=== PATIENT | male | born 1935 | race Caucasian/White ===

== ENCOUNTER 2016-12-14 08:00 | Outpatient (CLI) | payer MEDICARE, OTHER | END 2016-12-14 08:01 | disposition home or self-care (01) | DX: I50.22 Chronic systolic (congestive) heart failure (principal) ==

== ENCOUNTER 2017-03-18 08:00 | Outpatient (CLI) | payer MEDICARE, OTHER ==
[2017-03-18 19:15] LABS: CALCIUM 9.3 mg/dL (8.5-10.3); CREATININE 1.8 mg/dL (0.6-1.2); POTASSIUM 4.4 mmol/L (3.5-5.0)
== END 2017-03-18 08:01 | disposition home or self-care (01) ==
LOC: LAB.N 08:00
PROVIDERS: ATTEND Internal Medicine Cardiovascular Disease
DX: I50.22 Chronic systolic (congestive) heart failure (principal)
CPT/HCPCS: 36415; 80048; 83880

== ENCOUNTER 2017-06-14 14:08 | Outpatient (CLI) | payer MEDICARE, OTHER ==
[2017-06-14 20:04] LABS: CALCIUM 9.1 mg/dL (8.5-10.3); POTASSIUM 4.3 mmol/L (3.5-5.0)
== END 2017-06-14 14:09 | disposition home or self-care (01) ==
LOC: LAB.N 14:08
PROVIDERS: ATTEND Internal Medicine Cardiovascular Disease
DX: I50.22 Chronic systolic (congestive) heart failure (principal)
CPT/HCPCS: 36415; 80048; 83880

== ENCOUNTER 2017-08-16 08:00 | Outpatient (CLI) | payer MEDICARE, OTHER ==
[2017-08-16 19:19] LABS: BASOPHILS # (AUTO) 0.1 10^3/uL (0.0-0.1); BASOPHILS % (AUTO) 0.7 %; EOSINOPHILS # (AUTO) 0.5 10^3/uL (0.0-0.7); EOSINOPHILS % (AUTO) 6.1 %; HCT - HEMATOCRIT 37.8 % (42.0-52.0); HGB - HEMOGLOBIN 12.2 g/dL (14.0-18.0); LYMPHOCYTES # (AUTO) 1.3 10^3/uL (1.5-3.5); LYMPHOCYTES % (AUTO) 15.7 %; MEAN CORPUSCULAR HEMOGLOBIN 29.5 pg (27.0-31.0); MEAN CORPUSCULAR HGB CONC 32.3 g/dL (32.0-36.0); MEAN CORPUSCULAR VOLUME 91.4 fL (80.0-94.0); MEAN PLATELET VOLUME 7.9 fL (7.4-11.4); MONOCYTES # (AUTO) 0.9 10^3/uL (0.0-1.0); MONOCYTES % (AUTO) 10.3 %; NEUTROPHILS # (AUTO) 5.6 10^3/uL (1.5-6.6); NEUTROPHILS % (AUTO) 67.2 %; NUCLEATED RED BLOOD CELLS AUTO 0.1 /100WBC; RED BLOOD COUNT 4.14 10^6/uL (4.70-6.10); UNCORRECTED WHITE BLOOD COUNT 8.4 x10^3/uL; WHITE BLOOD COUNT 8.4 x10^3/uL (4.8-10.8)
[2017-08-16 19:24] LABS: ALBUMIN/GLOBULIN RATIO 0.9 (1.0-2.2); BILIRUBIN,TOTAL 0.5 mg/dL (0.2-1.0); CALCIUM 9.3 mg/dL (8.5-10.3); POTASSIUM 4.5 mmol/L (3.5-5.0); TOTAL PROTEIN 7.5 g/dL (6.7-8.2); URIC ACID 7.2 mg/dL (2.6-7.2)
== END 2017-08-16 08:01 | disposition home or self-care (01) ==
LOC: LAB.N 08:00
PROVIDERS: ATTEND Internal Medicine
DX: I50.9 Heart failure, unspecified (principal); M10.9 Gout, unspecified
CPT/HCPCS: 36415; 80053; 83880; 84550; 85025

== ENCOUNTER 2017-11-03 08:00 | Outpatient (CLI) | payer MEDICARE, OTHER ==
[2017-11-03 19:12] LABS: CALCIUM 9.1 mg/dL (8.5-10.3); CREATININE 1.8 mg/dL (0.6-1.2)
== END 2017-11-03 08:01 | disposition home or self-care (01) ==
LOC: LAB.N 08:00
PROVIDERS: ATTEND Internal Medicine
DX: I25.5 Ischemic cardiomyopathy (principal); R06.02 Shortness of breath
CPT/HCPCS: 36415; 80048; 83880

== ENCOUNTER 2018-01-03 08:00 | Outpatient (CLI) | payer MEDICARE, OTHER ==
[2018-01-03 19:24] LABS: CALCIUM 8.7 mg/dL (8.5-10.3)
== END 2018-01-03 08:01 | disposition home or self-care (01) ==
LOC: LAB.N 08:00
PROVIDERS: ATTEND Internal Medicine Cardiovascular Disease
DX: I50.22 Chronic systolic (congestive) heart failure (principal)
CPT/HCPCS: 36415; 80048; 83880

== ENCOUNTER 2018-05-03 08:00 | Outpatient (CLI) | payer MEDICARE, OTHER ==
[2018-05-03 12:14] LABS: CALCIUM 8.6 mg/dL (8.5-10.3); CREATININE 1.7 mg/dL (0.6-1.2)
== END 2018-05-03 08:01 | disposition home or self-care (01) ==
LOC: LAB.N 08:00
PROVIDERS: ATTEND Internal Medicine Cardiovascular Disease
DX: I50.22 Chronic systolic (congestive) heart failure (principal)
CPT/HCPCS: 36415; 80048; 83880

== ENCOUNTER 2018-08-17 08:00 | Outpatient (CLI) | payer MEDICARE, OTHER ==
[2018-08-17 19:08] LABS: CALCIUM 9.4 mg/dL (8.5-10.3); CREATININE 1.8 mg/dL (0.6-1.2)
== END 2018-08-17 08:01 ==
LOC: LAB.N 08:00
PROVIDERS: ATTEND Internal Medicine Cardiovascular Disease
DX: I50.22 Chronic systolic (congestive) heart failure (principal)
CPT/HCPCS: 36415; 80048; 83880

== ENCOUNTER 2018-12-13 08:00 | Outpatient (CLI) | payer MEDICARE, OTHER ==
[2018-12-13 19:30] LABS: CREATININE 1.6 mg/dL (0.6-1.2)
== END 2018-12-13 23:59 | disposition home or self-care (01) ==
LOC: LAB.N 08:00
PROVIDERS: ATTEND Internal Medicine Cardiovascular Disease
DX: I50.22 Chronic systolic (congestive) heart failure (principal)
CPT/HCPCS: 36415; 80048; 83880

== ENCOUNTER 2019-01-13 14:18 | Outpatient (CLI) | payer SELFPAY | END 2019-01-13 14:19 | disposition EMS.NT | LOC: EMS 14:18 | PROVIDERS: ATTEND Surgery | DX: R10.9 Unspecified abdominal pain (principal); M54.2 Cervicalgia; W06.XXXA Fall from bed, initial encounter; Y92.003 Bedroom of unspecified non-institutional (private) residence as the place of occurrence of the external cause ==

== ENCOUNTER 2019-03-08 08:00 | Outpatient (CLI) | payer MEDICARE, OTHER ==
[2019-03-08 19:07] LABS: ALBUMIN 3.4 g/dL (3.2-5.5); ALBUMIN/GLOBULIN RATIO 0.9 (1.0-2.2); BILIRUBIN,TOTAL 0.6 mg/dL (0.2-1.0); CALCIUM 9.3 mg/dL (8.5-10.3); CREATININE 1.8 mg/dL (0.6-1.2); TOTAL PROTEIN 7.2 g/dL (6.7-8.2)
[2019-03-08 19:12] LABS: CREATININE,URINE 42.3 mg/dL; MICROALBUM/CREATININE RATIO,UR 170.2 ug/mg (<30.0); MICROALBUMIN,URINE 7.2 mg/dL (0-300.0)
[2019-03-08 19:14] LABS: HB2 TOTAL 12.1 g/dL; HEMOGLOBIN A1C 0.59 g/dL; HEMOGLOBIN A1C % 6.6 % (4.6-6.2)
== END 2019-03-08 23:59 | disposition home or self-care (01) ==
LOC: LAB.N 08:00
PROVIDERS: ATTEND Internal Medicine
DX: I50.9 Heart failure, unspecified (principal); E11.9 Type 2 diabetes mellitus without complications
CPT/HCPCS: 36415; 80053; 82043; 82570; 83036

== ENCOUNTER 2019-04-12 16:01 | Outpatient (CLI) | payer MEDICARE, OTHER ==
--- NOTE | 2019-04-12 16:59 | CONSULTATION NOTE ---
Palliative Care Consultation - Referral Referring Provider: Dr Carrillo Time of Visit: [place] 04/12/2019. 10:35 - 12:25 Referral Reason: Declining status / Pal Care - Information Sources Records reviewed: Previous records reviewed History/Review of Systems obtained from: Patient, Family Exam limitations: No limitations - History of Present Illness Brief History of Present Illness: Thank you, Dr. Carrillo, for asking the palliative care consult service to be involved in the care of your patient. I am asked to provide support regarding decline in functional status, symptom management, and clarification of goals. 83-year-old male, [place] of several tours, had significant exposure to agent orange[place] 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 Medical History: CHF; CAD; aortic stenosis with bioprosthetic valve replacement; h/o CABG; ischemic cardiomyopathy; HLD; HTN; atrial fibrillation; pulmonary HTN; COPD on O2; HAMILTON; DM2; CKD3; h/o TIA/CVA; GERD; gout. Patient's comorbidities are advanced. He has declined Hospice during past discussion with PCP. His Jessie, a retired nurse, were agreeable to meeting with the palliative care service. Patient's CHF and COPD are advanced, he is on continual oxygen. Patient becomes quickly SOA with any exertion, including speaking. He is sedentary most of the time, sleeping throughout the day, or watching TV. He doesn't sleep well at night, waking up after 2-3 hours sleep. He sleeps throughout the day, takes a 3-hr nap in the afternoons. He sees his drier and pulverizer tender three times per year. The next visit is in May. The most recent echo showed a 35% EF according to Jessie, patient's spouse. Patient uses Tylenol and heating pad to control pain in R shoulder. He fractured the R humerus about 1.5 years ago. 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), Chronic hearing loss Psych: reports: Depression, Anxiety Musculoskeletal: reports: None Derm: reports: None MRSA Hx?: Yes - Past Surgical History General: reports: Cholecystectomy (2-3 years ago), Colonoscopy Ortho: reports: ACL reconstruction, Other (R hip post fracture repair; pinned, 3 yrs ago) /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 Quite 43 years ago. Rarely drinks beer, never more than one.) Social History - Living Situation Living arrangement: At home Living Situation: With spouse/s.o. Support System: He and spouse Jessie, a retired nurse, have been 55 years. This is his second marriage. He has 6 children (4 living) that Jessie and he have raised. [place] on [address] [place]. He is originally from [place], [place]. 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 He had a serious, skin-contact exposure to agent orange while in [place], and receives an additional pension as a result. He spent 20 years in the [employer], 21 years with [employer]. Family History - Family History Family History Comment/Other: Father age 68, CVA. Mother age 72, also had CVA, lived 3 more years He has 6 siblings, two have with cancer. He has 6 children, two have with cardiac disease post-addiction. Medications/Allergies - Medications Home Medications: Ambulatory Orders Medication Instructions Recorded Confirmed Allopurinol 150 mg ORAL DAILY 11/18/14 04/12/19 Apixaban [Eliquis] 2.5 mg ORAL BID 11/18/14 04/12/19 Azithromycin 250 mg ORAL DAILY 11/18/14 04/12/19 Carvedilol 12.5 mg ORAL BID 11/18/14 04/12/19 FLUoxetine [PROzac] 20 mg ORAL DAILY 11/18/14 04/12/19 Ferrous Sulfate 325 mg ORAL DAILY 11/18/14 04/12/19 Fexofenadine [Sabrina] 60 mg ORAL DAILY 11/18/14 04/12/19 Levalbuterol HCl 0.31 mg .ROUTE Q4H PRN 11/18/14 04/12/19 Losartan [Cozaar] 25 mg ORAL DAILY 11/18/14 04/12/19 Potassium Chloride 20 meq ORAL DAILY 11/18/14 04/12/19 Spironolactone 25 mg ORAL DAILY 11/18/14 04/12/19 Tiotropium [Spiriva] 18 mcg INH DAILY 11/18/14 04/12/19 Torsemide 10 mg ORAL BID 11/18/14 04/12/19 Acetaminophen 500 mg PO Q8H PRN MDD max 3000 mg 04/12/19 04/12/19 / day Albuterol 3 ml PO Q8H PRN 04/12/19 04/12/19 Clobetasol Propionate/Emoll 1 ea TOP DAILY PRN 04/12/19 04/12/19 [Clobetasol Emollient 0.05% Crm] Clotrimazole Brittany 10 mg PO DAILY PRN 04/12/19 04/12/19 Cod Liver Oil 1 ea PO DAILY 04/12/19 04/12/19 Metoprolol Succinate 25 mg PO DAILY 04/12/19 04/12/19 Nystatin/Triamcin 1 ea TOP DAILY PRN 04/12/19 04/12/19 [Nystatin-Triamcinolone Ointm] Pantoprazole Sodium 40 mg PO DAILY 04/12/19 04/12/19 metOLazone [Metolazone] 2.5 mg PO DAILY PRN 04/12/19 04/12/19 - Allergies Allergies/Adverse Reactions: Allergies Allergy/AdvReac Type Severity Reaction Status Date / Time Sulfa (Sulfonamide Allergy Severe Rash Verified 05/20/16 19:35 Antibiotics) Dhlvred-Sqt-Cfk Reductase Allergy Intermediate Cramps Verified 05/20/16 19:35 Inhibitor codeine Allergy Severe Nausea Uncoded 05/20/16 19:35 lisinopril Allergy Severe Unknown Uncoded 05/20/16 19:35 statins Allergy Severe Unknown Uncoded 05/20/16 19:35 sulfadiazine Allergy Severe Rash Uncoded 05/20/16 19:35 Review of Systems - Constitutional Constitutional: reports: Fatigue, Weight loss (196.2 lbs 03/20/19, BMI 32.77. 199.6 lbs 12/14/18.) - Eyes Eyes: reports: Vision loss (L eye, post-CVA) - Ears, Nose & Throat Ears, Nose & Throat: reports: Hearing loss, Hearing aids (doesn't use them), Dentures (upper and lower, since his 20s) - Cardiovascular Cardiovascular: reports: Palpitations, Edema, Lightheadedness, Exertional dyspnea, Decr. exercise tolerance - Respiratory Respiratory: reports: Wheezing, SOB at rest, SOB with exertion - Gastrointestinal Gastrointestinal: reports: Constipation, Diarrhea, Rectal bleeding (on Protonix), Poor appetite (moderate) - Genitourinary Genitourinary: reports: Frequency, Incontinence (leakage), Nocturia, Sexual dysfunction - Musculoskeletal Musculoskeletal: reports: Stiffness, Limited range of motion (R shoulder), Joint pain (bilateral knees; [id number]; not a surgical candidate), Assistive devices (walker), Transfer issues (stand by assist) - Integumentary Integumentary: reports: Dryness, Pigment changes (hemosiderin staining dorsal aspect of L hand), Other (psoriasis) - Neurological Neurological: reports: General weakness, Memory problems - Psychiatric Psychiatric: reports: Depression (Prozac since 2010), Other (nervousness) - Hematologic/Lymphatic Hematologic/Lymphatic: reports: Anemia (transfusion in 2010), Bruising (on Apixaban), Bleeding tendencies (slow to heal after cuts) Physical Exam - Vital Signs Temperature: 96.4 F Pulse Rate: 83 O2 Saturation: 99 (3L O2 NC) Blood Pressure: 93/52 (Pt reports PCP wants it low) - Physical Exam General Appearance: positive: No acute distress Eyes Bilateral: positive: Normal inspection. negative: EOMI (blind L eye) ENT: positive: No signs of dehydration Neck: positive: Trachea midline Cardiovascular: positive: Irregular, Systolic murmur (2/6) Respiratory: positive: Chest non-tender, No respiratory distress, Diminished in bases (R side very diminished). negative: Wheezes, Rales, Rhonchi Abdomen: positive: Non-tender, Soft, Abnml bowel sounds (hypoactive), Obese Skin: positive: Dryness, Bruising Extremities: positive: Pedal edema (2+, L foot greater) Neurologic/Psychiatric: positive: Oriented x3, Mood/affect nml Palliative Care - POLST Patient has POLST: Yes POLST Status: DNR, Selective Treatment Pain: Pain unchanged, Comment (shoulder and joints) Tiredness/Fatigue: Severe (7-10) Drowsiness/Sedation: Severe (7-10) Nausea: Mild (1-3) Depression: Moderate (4-6) Anxiety: Moderate (4-6) Dyspnea: Severe (7-10) Anorexia: Moderate (4-6) Sleep: Sleeps poorly (sleeps 2-3 hours then up, both day and night), Variable sleep pattern Constipation: Yes, Intermittent constipation, Comment (uses docusate and senna alternately) Performance Status: requires help getting dressed, can't lean over transfers with difficulty, stands by ambulatory with walker, unsteady gait 24-hour oxygen 2-3L SOA with any exertion incontinent/leakage uses toilet independently Palliative Performance Scale (PPS): 50% ALVA INDEX - All-cause 1-year mortality risk for community-dwelling adults age 65 and over: 36.5% Risk calculators cannot predict the future for any one individual. Risk calculators give an estimate of how many people with similar risk factors will live and , but they cannot identify who will live and who will . - Palliative Care Discussion: When asked what concerns him most of all, it is his , and that the burden of taking care of the house and property falls on her. He expresses regret about losing the ability to mow his gatica and work around the house. Jessei doesn't feel comfortable at hiring people to help with the house or land; they have had some disappointing experiences with people they have hired in the past. We did discuss the possibility of eventually needing to hire outside caregiver help as his disease process progresses. We discussed [facility] as a resource, and [place]. Patient previously had a POLST, we did discuss goals of care, and his high risk for respiratory of CHF or COPD crises. Patient does want DNR, and for treatment, would want transfer to hospital for reversible conditions, but not to [facility]. He expressed disappointment when he was hospitalized 5 days at [facility] several years ago. While at [facility] he felt ignored by the staff, and felt that it may have been due to his DNR status. He ended up being transferred to [place] where a cholecystectomy was performed. He is ambivalent about intubation; we discussed the benefits and burdens, and the very poor prognosis of ever getting off intubation, considering the extent of his cardiovascular and lung disease. Provided education that the treatment section of the POLST is a guideline, there is flexibility on [id number] basis. Jessie keeps a close watch on his condition, manages his medications, adjusting dosing of diuretics and potassium as needed when his edema worsens. She expresses regret and sadness that they saved up for years so [place] could travel [place], and have not been able to do so with his poor health. The patient expresses some dark humor about his condition. Results - Lab Results Lab results reviewed: Yes Lab and Imaging Results: 03/08/19: Na 141 K+ 4.7 Chl 103 CO2 28 BUN 79 H Cr 1.8 H GFR 36 L Gluc 143 H Albumin 3.4 Alb/Glob ratio 0.9 L Impression and Recommendations - Palliative Care Impression: 83-year-old male, [place] of several tours, had significant exposure to agent orange[place]. 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 Prognosis is poor. Patient and could benefit from Palliative Care support and oversight, with monitoring for transition to Hospice when appropriate. Recommendations/Counseling Done: CHF: Patient sees drier and pulverizer tender Dr Hickman in [place] 3 times per year. Last visit was August. They have a May visit scheduled, Jessie plans to ask for an echo. She reports most recent showed EF of 35%. SOA is at his baseline today on 3L O2. Pedal edema is 2+. Jessie administers metolazone tablets as needed and titrates torsemide according to level of edema, and administers 2 potassium tablets for each torsemide tablet. Also on carvedilol and losartan. Atrial fibrillation: Metoprolol for rate control, Apixaban for anticoagulation. COPD: Continual oxygen, 2-3L. His O2 sats were 99%, Jessie decreased it to 2L. He has a history of difficult to control oral candidiasis, so he is not using the Advair Diskus (fluticasone-salmeterol), or the Spiriva. Provided education that it's corticosteriods that can trigger candidiasis, not tiotropium. He has leavalbuterol for nebulizer. Takes daily azithromycin for bloody sputum. CKD III: Not on any NSAIDs. PCP orders monthly labs to monitor. Renal labs elevated, but stable. Shoulder/LUE pain: S/P humerus fracture 1.5 years ago. Not currently using opioids, but he had a [place] order in the past. Pain controlled currently with 3-4 tablets of 500mg Tylenol a day; maximum his spouse administers is 3000mg/24hr. Depression: Stable with fluoxetine 20mg daily. Advance care planning: Discussed goals of care in relation to filling out new POLST: DNR, and selective treatment, patient wants transfer to an [place]land hospital, if needed, for treatment of reversible conditions. He would want to be treated for pneumonia, is undecided about intubation. No tube feeding; antibiotics to prolong life. Patient may be close to meeting medical criteria for Hospice, but his goals of care are not appropriate for Hospice at this time. Palliative Care will provide extra support and monitoring for transition to Hospice when appropriate. Follow up in May. Time Spent: 115 minutes were spent with more than 50% of the time spent on counseling, education, and coordination of care.
== END 2019-04-12 16:02 | disposition home or self-care (01) ==
LOC: PC 16:01
PROVIDERS: ATTEND Nurse Practitioner
DX: Z51.5 Encounter for palliative care (principal); I13.0 Hypertensive heart and chronic kidney disease with heart failure and stage 1 through stage 4 chronic kidney disease, or unspecified chronic kidney disease; I50.9 Heart failure, unspecified; E11.22 Type 2 diabetes mellitus with diabetic chronic kidney disease; N18.3 Chronic kidney disease, stage 3 (moderate); I48.91 Unspecified atrial fibrillation; J44.9 Chronic obstructive pulmonary disease, unspecified; T48.6X6A Underdosing of antiasthmatics, initial encounter; T44.3X6A Underdosing of other parasympatholytics [anticholinergics and antimuscarinics] and spasmolytics, initial encounter; Z91.128 Patient's intentional underdosing of medication regimen for other reason; Y92.009 Unspecified place in unspecified non-institutional (private) residence as the place of occurrence of the external cause; I27.20 Pulmonary hypertension, unspecified; M25.511 Pain in right shoulder; F32.9 Major depressive disorder, single episode, unspecified; G47.33 Obstructive sleep apnea (adult) (pediatric); I69.398 Other sequelae of cerebral infarction; H54.40 Blindness, one eye, unspecified eye; H91.93 Unspecified hearing loss, bilateral; I25.5 Ischemic cardiomyopathy; I25.10 Atherosclerotic heart disease of native coronary artery without angina pectoris; Z95.2 Presence of prosthetic heart valve; Z77.098 Contact with and (suspected) exposure to other hazardous, chiefly nonmedicinal, chemicals; Z99.81 Dependence on supplemental oxygen; Z86.14 Personal history of Methicillin resistant Staphylococcus aureus infection; Z87.891 Personal history of nicotine dependence; Z79.01 Long term (current) use of anticoagulants; Z66 Do not resuscitate; Z79.899 Other long term (current) drug therapy; Z79.2 Long term (current) use of antibiotics; Z95.1 Presence of aortocoronary bypass graft
CPT/HCPCS: 99345

== ENCOUNTER 2019-05-21 08:00 | Outpatient (CLI) | payer MEDICARE, OTHER ==
[2019-05-21 19:28] LABS: CALCIUM 9.1 mg/dL (8.5-10.3); CREATININE 1.8 mg/dL (0.6-1.2)
== END 2019-05-21 23:59 | disposition home or self-care (01) ==
LOC: LAB.N 08:00
PROVIDERS: ATTEND Internal Medicine Cardiovascular Disease
DX: I50.22 Chronic systolic (congestive) heart failure (principal)
CPT/HCPCS: 36415; 80048; 83880; 85610

== ENCOUNTER 2019-06-23 23:08 | Outpatient (CLI) | payer MEDICARE, OTHER | END 2019-06-23 23:09 | disposition EMS.NT | LOC: EMS 23:08 | PROVIDERS: ATTEND Surgery | DX: M54.9 Dorsalgia, unspecified (principal); W01.198A Fall on same level from slipping, tripping and stumbling with subsequent striking against other object, initial encounter; Y92.009 Unspecified place in unspecified non-institutional (private) residence as the place of occurrence of the external cause ==

== ENCOUNTER 2019-07-05 11:05 | Outpatient (CLI) | payer MEDICARE, OTHER | END 2019-07-05 11:06 | disposition critical access hospital (66) | LOC: EMS 11:05 | PROVIDERS: ATTEND Surgery | DX: M25.551 Pain in right hip (principal); W01.0XXA Fall on same level from slipping, tripping and stumbling without subsequent striking against object, initial encounter; Y92.003 Bedroom of unspecified non-institutional (private) residence as the place of occurrence of the external cause ==

== ENCOUNTER 2019-07-05 11:42 | Emergency (ER) | payer MEDICARE, OTHER ==
[2019-07-05 12:06] LABS: BASOPHILS % (AUTO) 0.5 %; EOSINOPHILS # (AUTO) 0.3 10^3/uL (0.0-0.7); EOSINOPHILS % (AUTO) 3.1 %; HGB - HEMOGLOBIN 10.5 g/dL (14.0-18.0); LYMPHOCYTES # (AUTO) 1.3 10^3/uL (1.5-3.5); LYMPHOCYTES % (AUTO) 16.5 %; MEAN CORPUSCULAR HEMOGLOBIN 29.7 pg (27.0-31.0); MEAN CORPUSCULAR HGB CONC 30.1 g/dL (32.0-36.0); MEAN CORPUSCULAR VOLUME 98.6 fL (80.0-94.0); MONOCYTES # (AUTO) 0.8 10^3/uL (0.0-1.0); MONOCYTES % (AUTO) 9.7 %; NEUTROPHILS # (AUTO) 5.6 10^3/uL (1.5-6.6); NEUTROPHILS % (AUTO) 69.3 %; PLT - PLATELET COUNT 194 10^3/uL (130-450); RED BLOOD COUNT 3.54 10^6/uL (4.70-6.10); RED CELL DISTRIBUTION WIDTH 14.7 % (12.0-15.0); WHITE BLOOD COUNT 8.1 x10^3/uL (4.8-10.8)
[2019-07-05 12:07] LABS: BILIRUBIN,URINE NEGATIVE (NEGATIVE); GLUCOSE, URINE (UA) NEGATIVE (NEGATIVE); KETONES,URINE (UA) NEGATIVE (NEGATIVE); LEUKOCYTE ESTERASE, URINE NEGATIVE (NEGATIVE); NITRITE,URINE NEGATIVE (NEGATIVE); OCCULT BLOOD,URINE NEGATIVE (NEGATIVE); PH,URINE 5.5 PH (5.0-7.5); PROTEIN,URINE NEGATIVE (NEGATIVE); UROBILINOGEN,URINE 0.2 (NORMAL) E.U./dL (NORMAL)
[2019-07-05 12:15] LABS: CLARITY,URINE CLEAR (CLEAR)
--- NOTE | 2019-07-05 12:50 | XRAY Report ---
Reason: FELL ONTO RIGHT HIP Procedure Date: 07/05/2019 Accession Number: [id number] / [id number] Procedure: XR - Hip w/Pelvis 2-3V RT CPT Code: FULL RESULT: EXAM: RIGHT HIP RADIOGRAPHY EXAM DATE: 07/05/2019 12:33 PM. CLINICAL HISTORY: FELL ONTO RIGHT HIP. COMPARISON: HIP 2 VIEW RT 11/18/2014 8:51 PM. TECHNIQUE: 3 views. FINDINGS: Bones: Fixation hardware along the proximal aspect of the right femur with no evidence of hardware failure or loosening. Joints: Fixation hardware along the proximal aspect of the right femur Soft Tissues: Normal. No soft tissue swelling. IMPRESSION: Fixation hardware along the proximal right femur with no hardware failure or loosening. No acute fracture identified. RADIA
[2019-07-05 13:12] LABS: ALBUMIN 3.3 g/dL (3.2-5.5); ALBUMIN/GLOBULIN RATIO 0.8 (1.0-2.2); BILIRUBIN,TOTAL 0.7 mg/dL (0.2-1.0); CALCIUM 9.1 mg/dL (8.5-10.3); TOTAL PROTEIN 7.2 g/dL (6.7-8.2)
[2019-07-05] MEDS ORDERED: SODIUM CHLORIDE 0.9% 1,000 ML IV ONE (13:16)
--- NOTE | 2019-07-05 14:05 | CT Report ---
Reason: Fell, hitting head; on Eliquis. Procedure Date: 07/05/2019 Accession Number: [id number] / [id number] Procedure: CT - HEAD WO CPT Code: FULL RESULT: EXAM: CT HEAD EXAM DATE: 07/05/2019 12:48 PM. CLINICAL HISTORY: Fell, hitting head; on Eliquis. COMPARISON: HEAD W/O 11/18/2014 9:02 PM. TECHNIQUE: Multiaxial CT images were obtained from the foramen magnum to the vertex. Reformats: Sagittal and coronal. IV contrast: None. In accordance with CT protocol optimization, one or more of the following dose reduction techniques were utilized for this exam: automated exposure control, adjustment of mA and/or KV based on patient size, or use of iterative reconstructive technique. FINDINGS: Parenchyma: There is diffuse moderate periventricular white matter hypodensity. Negative for acute intracranial hemorrhage. There is no midline shift or mass-effect. Extraaxial Spaces: No subdural or epidural collections identified. Ventricles: Normal in size and position. Sinuses and Orbits: There is complete opacification of the left maxillary sinus. There is bilateral ethmoid sinus mucosal thickening. Mastoid sinuses are clear. Bones: No evidence of fracture or calvarial defect. Other: None. IMPRESSION: 1. Negative for acute intracranial hemorrhage and mass-effect. 2. Moderate diffuse white matter disease. Nonspecific but most commonly attributed to sequela of chronic microangiopathy. RADIA
--- NOTE | 2019-07-05 14:07 | ED Physician Documentation ---
PD HPI Fall - Stated complaint Stated Complaint: GLF - Chief complaint Chief Complaint: Trauma Ext - History obtained from History obtained from: Patient, Family, EMS - History of Present Illness Mechanism of injury: Slipped Fall distance: From bed Where injury occurred: Home Timing - onset: Today (Just prior to arrival.) Injury(ies) location: Head, Right Lower Extremity Associated symptoms: No: LOC Contributing factors: Anticoagulated - Additional information Additional information: The patient is an 83-year-old male with history of coronary artery disease and atrial fibrillation, on Eliquis, who presents via ambulance after he slipped while getting out of bed this morning reaching for his walker. He fell onto his right hip, and hit his head on an end table. He denies loss of consciousness. No one witnessed the fall, but his heard the thud and responded immediately. The patient has ambulated with the assistance of his walker since the incident occurred. He currently complains of pain in his right hip. He denies headache, neck pain, chest pain, nausea or vomiting. Review of Systems Constitutional: denies: Fever Eyes: reports: Other (Right eye blindness.) Ears: denies: Tinnitus/ringing Nose: denies: Congestion Throat: denies: Sore throat Cardiac: denies: Chest pain / pressure Respiratory: denies: Dyspnea, Cough GI: denies: Abdominal Pain, Nausea, Vomiting : denies: Dysuria, Incontinent Skin: reports: Other (Skin tear at the right elbow.) Musculoskeletal: reports: Extremity pain (right hip.). denies: Neck pain Neurologic: denies: Focal weakness, Numbness, Altered mental status, Headache, LOC PD PAST MEDICAL HISTORY - Past Medical History Cardiovascular: Congestive heart failure, Hypertension, High cholesterol, Coronary artery disease, Atrial fibrillation, Other Respiratory: COPD, Shortness of breath, Other Endocrine/Autoimmune: Type 2 diabetes GI: GERD : Nocturia, Frequency, Other HEENT: Chronic vision loss, Chronic hearing loss Psych: Depression, Anxiety Musculoskeletal: None Derm: None - Past Surgical History Past Surgical History: Yes General: Cholecystectomy, Colonoscopy Ortho: ACL reconstruction, Other /BRICK BAKER: Other (JOSE 1991) Cardiovascular: CABG, Valve replacement, AAA HEENT: Other Derm: Skin cancer surgery - Present Medications Home Medications: Ambulatory Orders Medication Instructions Recorded Confirmed Allopurinol 150 mg ORAL DAILY 11/18/14 04/12/19 Apixaban [Eliquis] 2.5 mg ORAL BID 11/18/14 04/12/19 Azithromycin 250 mg ORAL DAILY 11/18/14 04/12/19 Carvedilol 12.5 mg ORAL BID 11/18/14 04/12/19 FLUoxetine [PROzac] 20 mg ORAL DAILY 11/18/14 04/12/19 Ferrous Sulfate 325 mg ORAL DAILY 11/18/14 04/12/19 Fexofenadine [Sabrina] 60 mg ORAL DAILY 11/18/14 04/12/19 Levalbuterol HCl 0.31 mg .ROUTE Q4H PRN 11/18/14 04/12/19 Losartan [Cozaar] 25 mg ORAL DAILY 11/18/14 04/12/19 Potassium Chloride 20 meq ORAL DAILY 11/18/14 04/12/19 Spironolactone 25 mg ORAL DAILY 11/18/14 04/12/19 Tiotropium [Spiriva] 18 mcg INH DAILY 11/18/14 04/12/19 Torsemide 10 mg ORAL BID 11/18/14 04/12/19 Acetaminophen 500 mg PO Q8H PRN MDD max 3000 mg 04/12/19 04/12/19 / day Albuterol 3 ml PO Q8H PRN 04/12/19 04/12/19 Clobetasol Propionate/Emoll 1 ea TOP DAILY PRN 04/12/19 04/12/19 [Clobetasol Emollient 0.05% Crm] Clotrimazole Brittany 10 mg PO DAILY PRN 04/12/19 04/12/19 Cod Liver Oil 1 ea PO DAILY 04/12/19 04/12/19 Metoprolol Succinate 25 mg PO DAILY 04/12/19 04/12/19 Nystatin/Triamcin 1 ea TOP DAILY PRN 04/12/19 04/12/19 [Nystatin-Triamcinolone Ointm] Pantoprazole Sodium 40 mg PO DAILY 04/12/19 04/12/19 metOLazone [Metolazone] 2.5 mg PO DAILY PRN 04/12/19 04/12/19 - Allergies Allergies/Adverse Reactions: Allergies Allergy/AdvReac Type Severity Reaction Status Date / Time Sulfa (Sulfonamide Allergy Severe Rash Verified 07/05/19 11:47 Antibiotics) [id number] Reductase Allergy Intermediate Cramps Verified 07/05/19 11:47 Inhibitor codeine Allergy Severe Nausea Uncoded 07/05/19 11:47 lisinopril Allergy Severe Unknown Uncoded 07/05/19 11:47 statins Allergy Severe Unknown Uncoded 07/05/19 11:47 sulfadiazine Allergy Severe Rash Uncoded 07/05/19 11:47 - Social History Does the pt smoke?: No Smoking Status: Never smoker Does the pt drink ETOH?: Yes Does the pt have substance abuse?: No - Immunizations Immunizations are current?: Yes - POLST Patient has POLST: Yes PD ED PE NORMAL - Vitals Vital signs reviewed: Yes (normal) - General General: Alert and oriented X 3, Well developed/nourished - HEENT HEENT: EOMI, Other (There is a small scalp hematoma at the right occipital region.) - Neck Neck: No bony TTP, No JVD - Cardiac Cardiac: RRR - Respiratory Respiratory: Clear bilaterally - Abdomen Abdomen: Soft, Non tender - Back Back: No spinal TTP - Derm Derm: No rash - Extremities Extremities: No calf tenderness / cord, Other (There is a superficial skin tear at the extensor aspect of the right elbow. There is no significant tenderness to palpation of the right hip, including no tenderness with internal or external rotation of the hip. Distal neurovascular is intact.) - Neuro Neuro: Alert and oriented X 3, No motor deficit, Normal speech Eye Opening: Spontaneous Motor: Obeys Commands Verbal: Oriented GCS Score: 15 Results - Vitals Vitals: Oxygen O2 Source [] Nasal cannula O2 Source [] Nasal cannula O2 Source Room air - Labs Labs: Laboratory Tests 07/05/19 07/05/19 07/05/19 11:55 12:00 12:00 WBC 8.1 RBC 3.54 L Hgb 10.5 L Hct 34.9 L MCV 98.6 H MCH 29.7 MCHC 30.1 L RDW 14.7 Plt Count 194 MPV 10.0 Neut # (Auto) 5.6 Lymph # (Auto) 1.3 L [place] # (Auto) 0.8 Eos # (Auto) 0.3 Baso # (Auto) 0.0 Absolute Nucleated RBC 0.00 Nucleated RBC % 0.0 Sodium 138 Potassium 4.3 Chloride 97 L Carbon Dioxide 30 Anion Gap 11.0 BUN 92 H* Creatinine 2.0 H Estimated GFR (MDRD) 32 L Glucose 118 H Calcium 9.1 Total Bilirubin 0.7 AST 19 ALT 17 Alkaline Phosphatase 81 Total Protein 7.2 Albumin 3.3 Globulin 3.9 Albumin/Globulin Ratio 0.8 L Lipase 72 H Urine Color YELLOW Urine Clarity CLEAR Urine pH 5.5 Ur Specific [place] 1.010 Urine Protein NEGATIVE Urine Glucose (UA) NEGATIVE Urine Ketones NEGATIVE Urine Occult Blood NEGATIVE Urine Nitrite NEGATIVE Urine Bilirubin NEGATIVE Urine Urobilinogen 0.2 (NORMAL) Ur Leukocyte Esterase NEGATIVE Ur Microscopic Review NOT INDICATED Urine Culture Comments NOT INDICATED - Rads (name of study) Head CT Radiology: Prelim report reviewed, EMP read contemporaneously, See rad report (Negative for acute intracranial hemorrhage or mass-effect.) right hip Radiology: Prelim report reviewed, EMP read contemporaneously, See rad report (Fixation hardware along the proximal right femur with no hardware failure or loosening. No acute fracture identified.) PD MEDICAL DECISION MAKING - ED course Complexity details: reviewed old records, reviewed results, re-evaluated patient, considered differential, d/w patient, d/w family ED course: The patient's presentation is significant for a slip and fall, with contusion to his scalp and to his right hip. CT scan of his head is negative, an x-ray of his right hip is negative. Chemistry panel is remarkable for elevated BUN/creatinine of 92 and 2.0. His most recent previous BUN and creatinine were 83 and 1.8 on 05/21/19. Treatment in the emergency department included administration of normal saline 1 L IV, over a course of several hours. Losartan 25 mg and carvedilol 12.5 mg were administered orally. Prior to discharge the patient demonstrated ability to ambulate with the assistance of a walker. I discussed with him and his family the results of the workup, symptomatic treatment and outpatient follow- up, as well as potentially worrisome signs or symptoms that should prompt reevaluation in the emergency department. Departure - Departure Disposition: 01 Home, Self Care Clinical Impression: CKD (chronic kidney disease) stage 3, GFR 30-59 ml/min Fall Qualifiers: Encounter type: initial encounter Qualified Code(s): W19.XXXA - Unspecified fall, initial encounter Scalp contusion Qualifiers: Encounter type: initial encounter Qualified Code(s): S00.03XA - Contusion of scalp, initial encounter Contusion of hip, right Qualifiers: Encounter type: initial encounter Qualified Code(s): S70.01XA - Contusion of right hip, initial encounter Skin tear of elbow without complication Qualifiers: Encounter type: initial encounter Laterality: right Qualified Code(s): S51.011A - Laceration without foreign body of right elbow, initial encounter Condition: Stable Instructions: ED Contusion Scalp Follow-Up: Sin Carrillo MD [Credentialed Staff Provider] - Comments: sHe can use Tylenol as needed for headache or muscle aches. Follow-up with your primary physician within 1 week. Call to schedule appointment. Return to the emergency department if you develop increasing headache, persistent vomiting, or otherwise worsening symptoms. Discharge Date/Time: 07/05/19 16:20
[2019-07-05] MEDS ORDERED: CARVEDILOL 12.5 MG TABLET PO SCH ×2 (15:00→15:14)
[2019-07-05] MEDS ORDERED: LOSARTAN 50 MG TABLET PO STA (15:14)
[2019-07-05] MEDS: CARVEDILOL 12.5 MG TABLET PO STA (16:01)
[2019-07-05 16:20] VITALS: BP 140/90
[2019-07-06] MEDS ORDERED: LOSARTAN 50 MG TABLET PO SCH (09:00)
== END 2019-07-05 16:20 | disposition home or self-care (01) ==
LOC: EDUNIT# → ED 11:42
DX: S51.011A Laceration without foreign body of right elbow, initial encounter (principal); S00.03XA Contusion of scalp, initial encounter; S70.01XA Contusion of right hip, initial encounter; I13.0 Hypertensive heart and chronic kidney disease with heart failure and stage 1 through stage 4 chronic kidney disease, or unspecified chronic kidney disease; E11.22 Type 2 diabetes mellitus with diabetic chronic kidney disease; N18.3 Chronic kidney disease, stage 3 (moderate); I50.9 Heart failure, unspecified; Z79.01 Long term (current) use of anticoagulants; W06.XXXA Fall from bed, initial encounter; W22.03XA Walked into furniture, initial encounter; Y92.003 Bedroom of unspecified non-institutional (private) residence as the place of occurrence of the external cause
CPT/HCPCS: 36415; 70450; 73502; 80053; 81003; 83690; 85025; 96360; 99284; 99285; A9270; 81001; 87086